=== PATIENT | female | born 1965 ===

== ENCOUNTER 2017-11-05 15:53 | Inpatient (IN) | payer MEDICAID ==
--- NOTE | 2017-11-05 16:53 | C.PDOC ---
History Of Present Illness 52 year old female with a history of bipolar disorder along other mental issues was brought in the ED by her daughter for psychiatric evaluation. Per daughter patient has had mental issues for as long as she can remember, [place] the [place] 1 [place] after the last family member moved away from [place] where the patient initially lived. Daughter notes that the patient currently lives with her family (daughter and estranged ). After arriving from [place] the patient has had emotional outbursts and has been aggressive and physical towards the family. Patient was treated in [place] and has been compliant with unknown prescribed medications. Denies fever, vomiting, headache, and other associated symptoms. Time Seen by Provider: 11/05/17 16:31 Chief Complaint (Nursing): Psychiatric Evaluation History Per: Patient, Family (daughter) History/Exam Limitations: no limitations Onset/Duration Of Symptoms: Hrs Current Symptoms Are (Timing): Still Present Past Medical History Reviewed: Historical Data, Nursing Documentation, Vital Signs Vital Signs: Last Vital Signs Temp 99.0 F 11/05/17 16:21 Pulse 79 11/05/17 16:21 Resp 18 11/05/17 16:21 BP 121/83 11/05/17 16:21 Pulse Ox 98 11/05/17 16:21 Family History: States: Unknown Family Hx - Social History Hx Alcohol Use: No Hx Substance Use: No Review Of Systems Except As Marked, All Systems Reviewed And Found Negative. Constitutional: Negative for: Fever, Chills Gastrointestinal: Negative for: Nausea, Vomiting Neurological: Negative for: Headache Psych: Positive for: Other (Aggressive. Bipolar/unknown mental medical condition. ) Physical Exam - Physical Exam Appears: No Acute Distress, Other (tearful.) Skin: Normal Color Head: Atraumatic, Normacephalic Oral Mucosa: Moist Neck: Normal ROM, Supple Chest: Symmetrical Cardiovascular: Rhythm Regular Respiratory: Normal Breath Sounds, No Rales, No Rhonchi, No Wheezing Gastrointestinal/Abdominal: Soft, No Tenderness, No Distention, No Guarding, No Rebound Extremity: Normal ROM (x4), Other (no toe nails. cuticles have been picked, nails intact. ) Pulses: Left Radial: Normal, Right Radial: Normal Neurological/Psych: Normal Speech, Normal Motor, Normal Sensation Gait: Steady ED Course And Treatment - Laboratory Results Result Diagrams: 11/05/17 17:05 11/05/17 17:05 O2 Sat by Pulse Oximetry: 98 (RA) Pulse Ox Interpretation: Normal Medical Decision Making Medical Decision Making: Plan: --Blood sent. --Urinalysis. Update/Progress: Crisis Team was notified and agreed to evaluate the patient. Evaluated by [facility] where there was a language barrier. [employer] translat ion service was utilized however patient remained confused and [facility] [employer] [facility] was not able to access patient, stated her birthday was [birth year] when it's [birth year], and appeared unable to answer. Re-evaluation: Patient was re-evaluated by me where she correctly identified her date of and appeared able to answer questions. Disposition Discussed With Dr.: Garrison Hernandez Doctor Will See Patient In The: Hospital - Disposition Disposition: HOSPITALIZED Disposition Time: 19:13 Condition: GUARDED Forms: [facility] (Puerto Rican) - Clinical Impression Clinical Impression: Manic bipolar I disorder, Psychosis - Scribe Statement The provider has reviewed the documentation as recorded by the Scribe (Annette Gonzalez) Provider Attestation: All medical record entries made by the Scribe were at my direction and personally dictated by me. I have reviewed the chart and agree that the record accurately reflects my personal performance of the history, physical exam, medical decision making, and the department course for this patient. I have also personally directed, reviewed, and agree with the discharge instructions and disposition. Decision To Admit - Pt Status Changed To: Hospital Disposition Of: Inpatient - Admit Certification Admit to Inpatient:: After my assessment, the patient will require hospitalization for at least two midnights. This is because of the severity of symptoms shown, intensity of services needed, and/or the medical risk in this patient being treated as an outpatient. - InPatient: Physician Admission Certification: I certify that this patient requires 2 or more midnights of care for the following reason:: psychotic - . Bed Request Type: Psychiatry Patient Diagnosis: Manic bipolar I disorder, Psychosis
[2017-11-05 17:20] LABS: BASO % 0.4 % (0.0-2.0); EOS # 0.1 K/uL (0.0-0.7); EOS % 0.8 % (0.0-4.0); HEMOGLOBIN 12.8 g/dL (11.0-16.0); LYMPH % 30.8 % (20.0-40.0); MEAN CELL VOLUME 88.6 fL (81.0-99.0); MEAN CORPUSCULAR HEMOGLOBIN 29.8 pg (27.0-31.0); MEAN CORPUSCULAR HGB CONC 33.6 g/dL (33.0-37.0); MEAN PLATELET VOLUME 7.4 fL (7.2-11.7); MONO # 0.8 K/uL (0.0-0.8); MONO % 8.2 % (0.0-10.0); NEUT # 5.9 K/uL (1.8-7.0); NEUT % 59.8 % (50.0-75.0); NRBC % 0.1 % (0.0-2.0); RBC 4.31 Mil/uL (3.80-5.20); RED CELL DISTRIBUTION WIDTH 13.8 % (11.5-14.5); WHITE BLOOD COUNT 9.8 K/uL (4.8-10.8)
[2017-11-05 17:22] LABS: SQUAMOUS EPITHIAL 2 /hpf (0-5); URINE BACTERIA RARE (<OCC); URINE BILIRUBIN NEGATIVE (NEGATIVE); URINE BLOOD NEGATIVE (NEGATIVE); URINE CLARITY Clear (Clear); URINE COLOR Yellow (YELLOW); URINE GLUCOSE (UA) NORMAL (Normal); URINE LEUKOCYTE ESTERASE NEG Leu/uL (Negative); URINE PROTEIN NEGATIVE (NEGATIVE); URINE UROBILINOGEN NORMAL mg/dL (0.2-1.0)
[2017-11-05 17:24] LABS: ALB/GLOB RATIO 1.5 (1.0-2.1); ALBUMIN 4.5 g/dL (3.5-5.0); ALT/SGPT 17 U/L (9-52); AST/SGOT 17 U/L (14-36); BLOOD UREA NITROGEN 17 mg/dL (7-17); CALCIUM 9.8 mg/dl (8.6-10.4); GFR NON-AFRICAN AMERICAN > 60
[2017-11-05 17:26] LABS: BARBITURATES, UR NEGATIVE (NEGATIVE); BENZODIAZEPINES, UR NEGATIVE (NEGATIVE)
[2017-11-05 17:45] LABS: OPIATES, UR NEGATIVE (NEGATIVE); PHENCYCLIDINE, UR NEGATIVE (NEGATIVE)
--- NOTE | 2017-11-05 21:06 | PCM.BM ---
<Elza Flaherty - Last Filed: 11/05/17 21:04> Treatment Plan Problems - Problems identified on initial assessmt Auditory Hallucinations Date Initiated: 11/05/17 Time Initiated: 21:04 Assessment reference: NA Status: Active Anxiety Date Initiated: 11/05/17 Time Initiated: 21:04 Assessment reference: NA Status: Active Treatment assets and liabiliti Patient Assests: cooperative, ADL independent, good support system, negotiates basic needs Patient Liabilities: medical problems, language/speech - Milieu Protocol Maintain good personal hygiene: daily Encourage regular showers, daily Remind patient to perform daily oral care, daily Assist patient to perform ADL's, every shift Assist patient to perform ADL's Conduct patient checks and document Observation sheet: Q15 minutes (For Safety) Maintain personal safety: every shift Educate patient to report safety concerns to staff, every shift Monitor environment for contraband/sharps Medication safety: Monitor for expected outcome, potential side effects: every shift, Assess barriers to learning: every shift, Assess readiness for medication education: every shift <Garrison Hernandez - Last Filed: 11/07/17 11:32> - Diagnosis (1) Bipolar disorder Status: Acute Interventions: 11/07/17 11:32 * Assess/adjust medications daily and /or as needed * See patient on an individual basis 7x/week to assess level of manic behaviors and stability * Discuss risks, benefits, side effects and alternatives of medications * <Brenda Rasmussen - Last Filed: 11/07/17 11:47> Family Contact Family involvement: Family/SO is involved Family contact: Patient agrees to contact Family contact name: Robbie Mabry-daughter Family contacted how many times per week?: 2 - Goals for Treatment Patient goals for treatment: "I want to go home." Discharge/Continuing Care - Education Needs Education Needs: Patient Medication, Patient Coping Skills - Discharge Discharge Criteria: Tolerates medication w/o severe side effects, Reduction of target symptoms Discharge to:: Home, With Family - Treatment Team Participation Discussed with Family/SO: No Was Patient/Family/SO present at Treatment Team Meeting: Yes
[2017-11-05] MEDS ORDERED: Promethazine 6.25 MG/5 ML CUP PO PRN (21:37)
--- NOTE | 2017-11-06 10:24 | PCM.PSYCH ---
Initial Psychiatric Evaluation - Initial Psychiatric Evaluation Type of Admission: Voluntary Legal Status: Capacity Chief Complaint (in patient's own words): I was feeling very irritable.' History of Present Illness and Precipitating Events: Patient is a 52-year-old female, with adult children, who was brought [place] the [place] 1 [place] ago to live with her daughter and . Patient is here because she has been having emotional outbursts, getting easily agitated, and fighting with the family members. Patient has a history of bipolar disorder and has been treated for her mental problems in [place] for many years. She states that she had seen 2 different psychiatrists in [place]. She was last taken to see a psychiatrist by her aunt 3 months ago. Patient complains about hearing voices and describes them as "unclear voices like a noise". She denies the voices telling her to hurt herself or others. She also denies any visual hallucinations. She states that she sometimes gets angry and feels like she is fighting with someone. When she gets angry, she pulls her own hair, argue with the family members, or gets physically violent towards them. She denies having any suicidal or homicidal thoughts. Patient reports that she experiences memory loss . She says that she stopped cooking long time ago because she would get the food burned due to her forgetfulness. Patient knows that she is in a hospital but she is unable to specify the unit she is in the hospital or name the hospital. She does not know the name of the city she lives in. She answers the president of [place] as Obama. Patient denies forgetting addresses or directions. She says that she can find her home address in [place] but she does not know how to get to her daughter's home here in the [place]. Psych hx: bipolar disorder, depression Medical hx: high BP Family hx: dementia in and grandmother Current Medications: Active Medications Generic Name Dose Route Start Last Admin Trade Name Freq PRN Reason Stop Dose Admin Benztropine Mesylate 1 mg 11/05/17 21:30 11/06/17 09:45 Cogentin PO 1 mg BID EMEKA Administration Diphenhydramine HCl 25 mg 11/05/17 21:22 Benadryl PO Q6 PRN Anxiety Fluphenazine HCl 5 mg 11/05/17 21:30 11/06/17 09:45 Prolixin PO 5 mg BID EMEKA Administration Ibuprofen 600 mg 11/05/17 21:39 11/05/17 22:07 Motrin Tab PO 600 mg Q6 PRN Administration Pain, moderate (4-7) Influenza Virus Vaccine 60 mcg 11/07/17 10:00 Fluzone Quad [id number] IM 11/07/17 10:01 .ONCE ONE Lorazepam 1 mg 11/06/17 10:00 11/06/17 09:47 Ativan PO 1 mg TID EMEKA Administration Pneumococcal Polyvalent Vaccine 0.5 ml 11/07/17 10:00 Pneumovax 23 Vaccine IM 11/07/17 10:01 .ONCE ONE Promethazine HCl 6.25 mg 11/05/17 21:37 11/05/17 22:06 Phenergan Syrup PO 6.25 mg Q6 PRN Administration Cough Temazepam 15 mg 11/06/17 22:00 Restoril PO [facility] Past Psychiatric History - Past Psychiatric History Previous Treatment History: Inpatient Pertinent Medical Hx (Current Medical&Sleep Prob, Allergies): Allergies Allergy/AdvReac Type Severity Reaction Status Date / Time Penicillins Allergy Verified 11/05/17 16:25 Fluoxetine HCl 20 mg PO BID 11/05/17 Lorazepam [Ativan] 1 mg PO TID 11/05/17 Temazepam 15 mg PO HS 11/05/17 risperiDONE [RisperDAL] 0.5 mg PO HS 11/05/17 Review of Systems - Review of Systems All systems: reviewed and no additional remarkable complaints except - Psychiatric Psychiatric: Anxiety, Irritability, Suicidal Ideation Mental Status Examination - Personal Presentation Personal Presentation: Looks stated age - Affect Affect: Constricted, Depressed - Reliability in Providing Information Reliability in Providing Information: Poor, due to alteration in thoughts, Poor, due to altered mood - Speech Speech: Disorganized - Mood Mood: Depressed, Anxious - Formal Thought Process Formal Thought Process: Hallucinations, Delusions, Paranoia, Loosening of associations - Hallucinations/Delusions Hallucinations: Visual, Auditory Delusions: Persecution - Obsessions/Compulsions Obsessions: No Compulsions: No - Cognitive Functions Orientation: Person, Place, Situation, Time Sensorium: Alert Attention/Concentration: Attentive Abstract Thinking: [place] Estimate of Intelligence: Below average Judgement: Imparied, as evidence by: Poor judgement, Imparied, as evidence by: Lack of insight into illness - Risk Risk: Suicidal, Diminished functioning - Limitations Limitations: Living alone DSM 5 DX - DSM 5 DSM 5 Diagnosis: 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
[2017-11-06] MEDS: Divalproex 250 mg DR Tab PO SCH ×2 (11:24→17:55)
[2017-11-07] MEDS ORDERED: Influenza Vaccine 60 MCG/0.5 ML SYR (3 yr & up) IM ONE (10:00)
[2017-11-07] MEDS ORDERED: Pneumococcal 23-Valent Vaccine IM ONE (10:00)
[2017-11-07] MEDS: Divalproex 250 mg DR Tab PO SCH ×2 (10:02→17:23)
--- NOTE | 2017-11-07 23:45 | PCM.PYCHPN ---
Psychiatric Progress Note - Psychiatric Progress Note Patient seen today, length of contact: 15 min Patient Chief Complaint: I was feeling very irritable.' Problems Identified/Issues Discussed: Patient seen and evaluated, chart reviewed and discussed with the nurse. She remained forgetful and demented. When asked who is the president of the [employer], she said 'Pineda'. Pt reports depressed mood, and reports irritability and agitation. She remained isolated and withdrawn, and confined to her room. Patient is compliant with medications and denies any side effects. Symptoms are improving but pt needs more time to stabilize. Support and psychoeducation given. Medication Change: Yes Medical Record Reviewed: Yes Mental Status Examination - Cognitive Function Orientation: Person, Place, Situation, Time Memory: Intact Attention: WNL Concentration: Poor Association: Loose Fund of Knowledge: WNL - Mood Mood: Depressed, Anxious - Affect Affect: Constricted, Depressed - Formal Thought Process Formal Thought Process: Paranoia, Loosening of associations - Suicidal Ideation Suicidal Ideation: No - Homicidal Ideation Homicidal Ideation: No Goal/Treatment Plan - Goal/Treatment Plan Need for Continued Stay: Severe depression anxiety, Severe functional impairment Progress Toward Problem(s) and Goals/Treatment Plan: Bipolar disorder mixed severe with psychotic features R/O Alzheimer's disease with behavioral disturbances CBT Psychoeducation Supportive therapy Depakote 250 mg PO BID Prolixin 5 mg PO BID Cogentin 1 mg PO BID Trazodone 50 mg PO QHS Ativan 1 mg PO Q6 hr prn - Smoking Cessation Smoking Cessation Initiated: No
[2017-11-08 06:47] VITALS: O2SAT 96
[2017-11-08] MEDS: Divalproex 250 mg DR Tab PO SCH ×2 (10:12→17:12)
--- NOTE | 2017-11-08 10:56 | PCM.PYCHPN ---
Psychiatric Progress Note - Psychiatric Progress Note Patient seen today, length of contact: 15 min Patient Chief Complaint: I was feeling very irritable.' Problems Identified/Issues Discussed: Patient seen and evaluated, chart reviewed and discussed with the nurse. She remained forgetful and demented. When asked who is the president of the [employer], she said 'Pineda'. Pt reports depressed mood, and reports irritability and agitation. She remained isolated and withdrawn, and confined to her room. Patient is compliant with medications and denies any side effects. Symptoms are improving but pt needs more time to stabilize. Support and psychoeducation given. Medication Change: Yes Medical Record Reviewed: Yes Mental Status Examination - Cognitive Function Orientation: Person, Place, Situation, Time Memory: Intact Attention: WNL Concentration: Poor Association: Loose Fund of Knowledge: WNL - Mood Mood: Depressed, Anxious - Affect Affect: Constricted, Depressed - Formal Thought Process Formal Thought Process: Paranoia, Loosening of associations - Suicidal Ideation Suicidal Ideation: No - Homicidal Ideation Homicidal Ideation: No Goal/Treatment Plan - Goal/Treatment Plan Need for Continued Stay: Severe depression anxiety, Severe functional impairment Progress Toward Problem(s) and Goals/Treatment Plan: Bipolar disorder mixed severe with psychotic features R/O Alzheimer's disease with behavioral disturbances CBT Psychoeducation Supportive therapy Depakote 250 mg PO BID Prolixin 5 mg PO BID Cogentin 1 mg PO BID Trazodone 50 mg PO QHS Ativan 1 mg PO Q6 hr prn
[2017-11-09] MEDS: Divalproex 250 mg DR Tab PO SCH ×2 (10:16→17:14)
--- NOTE | 2017-11-09 11:25 | PCM.PYCHPN ---
Psychiatric Progress Note - Psychiatric Progress Note Patient seen today, length of contact: 15 min Patient Chief Complaint: I m feeling little better.' Problems Identified/Issues Discussed: Patient seen and evaluated, chart reviewed and discussed with the nurse. She remained forgetful and demented. Pt reports some improvement in her depressed mood, irritability and agitation. She remained isolated and withdrawn, and confined to her room. Patient is compliant with medications and denies any side effects. Symptoms are improving but pt needs more time to stabilize. Support and psychoeducation given. Medication Change: Yes Medical Record Reviewed: Yes Mental Status Examination - Cognitive Function Orientation: Person, Place, Situation, Time Memory: Intact Attention: WNL Concentration: Poor Association: Loose Fund of Knowledge: WNL - Mood Mood: Depressed, Anxious - Affect Affect: Constricted, Depressed - Formal Thought Process Formal Thought Process: Paranoia, Loosening of associations - Suicidal Ideation Suicidal Ideation: No - Homicidal Ideation Homicidal Ideation: No Goal/Treatment Plan - Goal/Treatment Plan Need for Continued Stay: Severe depression anxiety, Severe functional impairment Progress Toward Problem(s) and Goals/Treatment Plan: Bipolar disorder mixed severe with psychotic features R/O Alzheimer's disease with behavioral disturbances CBT Psychoeducation Supportive therapy Depakote 250 mg PO BID Prolixin 5 mg PO BID Cogentin 1 mg PO BID Trazodone 50 mg PO QHS Ativan 1 mg PO Q6 hr prn
[2017-11-10] MEDS: Divalproex 250 mg DR Tab PO SCH ×2 (09:39→17:37)
[2017-11-11 06:07] VITALS: RESP 20
[2017-11-11] MEDS: Divalproex 250 mg DR Tab PO SCH ×2 (09:14→17:06)
[2017-11-12] MEDS: Divalproex 250 mg DR Tab PO SCH ×2 (10:03→17:21)
--- NOTE | 2017-11-12 21:36 | PCM.PYCHPN ---
Psychiatric Progress Note - Psychiatric Progress Note Patient seen today, length of contact: 15 min Patient Chief Complaint: I am feeling much better. I miss my family. Patient was evaluated with the help of Haitian-speaking staff member. Problems Identified/Issues Discussed: Patient seen, chart reviewed, case discussed with the staff. Issues related to illness and treatment were discussed with the patient and staff. Reported compliant with treatment with no adverse affects. Tolerating treatment very well. Patient reported feeling better with the treatment. Calm and cooperative. Awake, alert and oriented 3. No psychomotor activity, good eye contact, memory intact. Aftercare discussed with the patient. Denied any delusions, auditory or visual hallucinations, suicidal ideations or homicidal ideations at the time of evaluation. Medical Problems: Hypertension Diagnostic Results: Reviewed DSM 5 Symptoms Update: Improving with treatment. Medication Change: No Medical Record Reviewed: Yes Mental Status Examination - Cognitive Function Orientation: Person, Place, Situation, Time Memory: Intact Attention: WNL Concentration: WNL Association: WNL Fund of Knowledge: WN Decription of patient's judgement and insights: Fair - Mood Mood: Neutral - Affect Affect: Depressed - Speech Speech: Appropriate - Formal Thought Process Formal Thought Process: No Impairment Psychotic Thoughts and Behaviors: None - Suicidal Ideation Suicidal Ideation: No - Homicidal Ideation Homicidal Ideation: No Goal/Treatment Plan - Goal/Treatment Plan Need for Continued Stay: Remain at risks for inpatient hospitalization, Discharge may exacerbated symptoms, Severe functional impairment Progress Toward Problem(s) and Goals/Treatment Plan: Patient/staff education. Supportive therapy. Continue treatment as before. Patient will go to adult daycare center after discharge from the hospital for follow-up care. Estimated Date of D/C: 11/14/17 - Smoking Cessation Smoking Cessation Initiated: No
--- NOTE | 2017-11-12 21:47 | PCM.PYCHPN ---
Psychiatric Progress Note - Psychiatric Progress Note Patient seen today, length of contact: 15 min Patient Chief Complaint: I m feeling little better.' Problems Identified/Issues Discussed: Patient seen and evaluated, chart reviewed and discussed with the nurse. Per staff she remained calm and cooperative. She remained forgetful and demented. Pt reports some improvement in her depressed mood, irritability and agitation. She remained isolated and withdrawn, and confined to her room. Patient is compliant with medications and denies any side effects. Symptoms are improving but pt needs more time to stabilize. Support and psychoeducation given. Medication Change: Yes Medical Record Reviewed: Yes Mental Status Examination - Cognitive Function Orientation: Person, Place, Situation, Time Memory: Intact Attention: WNL Concentration: Poor Association: Loose Fund of Knowledge: WNL - Mood Mood: Depressed, Anxious - Affect Affect: Constricted, Depressed - Speech Speech: Appropriate - Formal Thought Process Formal Thought Process: Paranoia, Loosening of associations - Suicidal Ideation Suicidal Ideation: No - Homicidal Ideation Homicidal Ideation: No Goal/Treatment Plan - Goal/Treatment Plan Need for Continued Stay: Severe depression anxiety, Severe functional impairment Progress Toward Problem(s) and Goals/Treatment Plan: Bipolar disorder mixed severe with psychotic features R/O Alzheimer's disease with behavioral disturbances CBT Psychoeducation Supportive therapy Depakote 250 mg PO BID Prolixin 5 mg PO BID Cogentin 1 mg PO BID Trazodone 50 mg PO QHS Ativan 1 mg PO Q6 hr prn Estimated Date of D/C: 11/14/17
--- NOTE | 2017-11-12 21:48 | PCM.PYCHPN ---
Psychiatric Progress Note - Psychiatric Progress Note Patient seen today, length of contact: 15 min Patient Chief Complaint: I m feeling little better.' Problems Identified/Issues Discussed: Patient seen and evaluated, chart reviewed and discussed with the nurse. Per staff she remained calm and cooperative. She appears better than before and less forgetful. Pt reports some improvement in her depressed mood, irritability and agitation. She remained isolated and withdrawn, and confined to her room. Patient is compliant with medications and denies any side effects. Symptoms are improving but pt needs more time to stabilize. Support and psychoeducation given. Medication Change: Yes Medical Record Reviewed: Yes Mental Status Examination - Cognitive Function Orientation: Person, Place, Situation, Time Memory: Intact Attention: WNL Concentration: Poor Association: Loose Fund of Knowledge: WNL - Mood Mood: Depressed, Anxious - Affect Affect: Constricted, Depressed - Speech Speech: Appropriate - Formal Thought Process Formal Thought Process: Paranoia, Loosening of associations - Suicidal Ideation Suicidal Ideation: No - Homicidal Ideation Homicidal Ideation: No Goal/Treatment Plan - Goal/Treatment Plan Need for Continued Stay: Severe depression anxiety, Severe functional impairment Progress Toward Problem(s) and Goals/Treatment Plan: Bipolar disorder mixed severe with psychotic features R/O Alzheimer's disease with behavioral disturbances CBT Psychoeducation Supportive therapy Depakote 250 mg PO BID Prolixin 5 mg PO BID Cogentin 1 mg PO BID Trazodone 50 mg PO QHS Ativan 1 mg PO Q6 hr prn Estimated Date of D/C: 11/14/17
[2017-11-13 06:03] VITALS: BP 126/91; PULSE 73; TEMP 98.1
[2017-11-13] MEDS: Divalproex 250 mg DR Tab PO SCH (09:20)
--- NOTE | 2017-11-14 15:42 | PCM.PYCHDC ---
Mental Status Examination - Mental Status Examination Orientation: Person, Place, Situation, Time Memory: Intact Mood: Neutral Affect: Other (Appropriate) Speech: Appropriate Attention: WNL Concentration: WNL Association: WNL Fund of Knowledge: WNL Formal Thought Process: No Impairment Description of patient's judgement and insight: Fair Psychotic Thoughts and Behaviors: None Suicidal Ideation: No Current Homicidal Ideation?: No Discharge Summary - Discharge Note Reason for Hospitalization: Bipolar 1 disorder mixed severe with psychotic features. Laboratory Data: Reviewed Consultations:: List each consultation separately and include: 1. Reason for request. 2. Findings. 3. Follow-up Summary of Hospital Course include:: 1. Description of specific treatment plan utilized for patients during their course of treatmen. 2. Summarize the time- course for resolution of acute symptoms and/or regressed behaviors. 3. Describe issues identified and worked on during hospitalization. 4. Describe medication utilized. 5. Describe medical problems identified and treated. 6. Reassessment of suicide risk Summary of Hospital Course: Patient is a 52-year-old female, with adult children, who was brought [place] the [place] 1 [place] ago to live with her daughter and . Patient is here because she has been having emotional outbursts, getting easily agitated, and fighting with the family members. Patient has a history of bipolar disorder and has been treated for her mental problems in [place] for many years. She states that she had seen 2 different psychiatrists in [place]. She was last taken to see a psychiatrist by her aunt 3 months ago. Patient complains about hearing voices and describes them as "unclear voices like a noise". She denies the voices telling her to hurt herself or others. She also denies any visual hallucinations. She states that she sometimes gets angry and feels like she is fighting with someone. When she gets angry, she pulls her own hair, argue with the family members, or gets physically violent towards them. She denies having any suicidal or homicidal thoughts. Patient reports that she experiences memory loss . She says that she stopped co oking long time ago because she would get the food burned due to her forgetfulness. Patient knows that she is in a hospital but she is unable to specify the unit she is in the hospital or name the hospital. She does not know the name of the city she lives in. She answers the president of [place] as [place]. Patient denies forgetting addresses or directions. She says that she can find her home address in [place] but she does not know how to get to her daughter's home here in the [place]. Psych hx: bipolar disorder, depression Medical hx: high BP Family hx: dementia in and grandmother During her stay in the hospital patient was treated with fluphenazine, Depakote and other medications. Patient was started on some when necessary medications also. Patient was getting temazepam for sleep. Patient was attending groups and other activities on the unit. With the above treatment and groups patient started feeling better. Today patient was stable and ready for discharge. At the time of evaluation and discharge, patient was calm and cooperative, awake, alert and oriented 3, had no delusions, no auditory or visual hallucinations, no suicidal ideations or homicidal ideations. Patient was discharged with her daughter. Patient will attend daycare center after discharge from the hospital for follow-up care. - Final Diagnosis (DSM 5) Condition upon Discharge: STABLE Disposition: HOME/ ROUTINE Follow-up Treatment Plan: Patient/staff education. Supportive therapy. Continue treatment as before. Patient will go to adult daycare center after discharge from the hospital for follow-up care. Prescriptions/Medication Reconciliation: Benztropine [Cogentin] 1 mg PO BID #60 tab Divalproex [Depakote DR] 250 mg PO BID #60 tcp fluPHENAZine [Prolixin] 5 mg PO BID #60 tab Lorazepam [Ativan] 1 mg PO TID #90 tablet Temazepam [Restoril] 15 mg PO HS #30 cap - Smoking Cessation Smoking Cessation Medication prescribed: No - Antipsychotic Medications Pt discharged on 2 or more routine antipsychotic medications: No
== END 2017-11-13 13:01 | disposition home or self-care (01) | DRG 430 ==
LOC: C.ER 15:53 → C.5E 19:14
PROVIDERS: ADMIT Psychiatry & Neurology Psychiatry; ATTEND Psychiatry & Neurology Psychiatry
PROC: GZHZZZZ Group Psychotherapy (ICD-10-PCS; principal; 2017-11-05)
PROC: GZ56ZZZ Individual Psychotherapy, Supportive (ICD-10-PCS; 2017-11-05)
DX: F31.64 Bipolar disorder, current episode mixed, severe, with psychotic features (principal); F03.90 Unspecified dementia, unspecified severity, without behavioral disturbance, psychotic disturbance, mood disturbance, and anxiety; I10 Essential (primary) hypertension